=== PATIENT | female | born 2000 | race African-American/Black ===

== ENCOUNTER → 2025-08-17 12:02 | Outpatient (CLI) | payer OTHER, SELFPAY ==
--- NOTE | 2025-08-17 12:05 | DI.US.S_ITS ---
PROCEDURE: US PELVIC COMPLETE INDICATIONS: PAIN TECHNIQUE: Real-time scanning was performed of the pelvic organs, with image documentation. Additional endovaginal scanning was necessary due to incomplete visualization of the adnexal and endometrial structures by transabdominal scanning. COMPARISON: None. FINDINGS: Uterus: Uterus is anteverted and normal in size at 7.6 x 4.0 x 5.8 cm. The myometrium is homogeneous. The endometrium measures 7 mm combined thickness. Ovaries: The right ovary measures 2.9 x 2.2 x 3.9 cm, with a calculated ovarian volume of 13 cc. The left ovary measures 3.6 x 1.9 x 2.4 cm, with a calculated ovarian volume of 8 cc. The ovaries have a normal sonographic appearance. Less than 12 follicles can be seen in each ovary. No adnexal masses are seen. Intrinsic ovarian blood flow seen bilaterally. Other: No pathologic free abdominal or pelvic fluid. IMPRESSION: No source for pelvic pain identified. If pain persists, consider cross-sectional imaging such as CT or MRI. We strive to produce accurate, complete, and clear reports of imaging services. To assist us in improving patient care, this report was composed using standard report templates and voice recognition software. Therefore, it may contain abnormal punctuation, insertions and/or omissions. Occasional wrong-word or sound-alike substitutions may occur. Though we review the report and make efforts to correct it, we do recommend that the report be read carefully in proper context to recognize any text inaccuracies. Dictated by: Orion GROSS Interpreted: Ramonita Mercado MD on 08/17/2025 at 13:16 Transcribed by: UCHE on 08/17/2025 at 13:17 Approved by: Ramonita Mercado M.D. on 08/17/2025 at 16:06
== END ==
LOC: US 12:04
PROVIDERS: Referring Provider Nurse Practitioner Family; Visit Provider Nurse Practitioner Family
DX: R10.20 Pelvic and perineal pain unspecified side (principal)
CPT/HCPCS: 76830; 76856; 93975